=== PATIENT | male | born 1965 | race Caucasian/White ===

== ENCOUNTER → 2017-08-03 18:53 | Emergency (ER) | payer OTHER ==
[2017-08-03 20:23] LABS: ALBUMIN 3.9 g/dL (3.4-5.0); ALKALINE PHOSPHATASE 70 U/L (46-116); ALT (SGPT) 27 U/L (10-68); BILIRUBIN - TOTAL 1.02 mg/dL (0.2-1.3); CALC OSMOLALITY 278 mosm/kg (275-300); CARBON DIOXIDE 24.2 mmol/L (21.0-32.0); CHLORIDE - SERUM 101 mmol/L (98-107); CREATININE - SERUM 1.1 mg/dL (0.6-1.3); GLUCOSE 128 mg/dL (74-106); POTASSIUM - SERUM 4.2 mmol/L (3.5-5.1); PROTEIN - SERUM 7.5 g/dL (6.4-8.2); SODIUM 137 mmol/L (136-145); UREA NITROGEN 22 mg/dL (7-18); eGFR NON AFRICAN AMERICAN 75 mL/min (90-120)
== END | disposition home or self-care (01) ==
LOC: D.ER 18:53
PROVIDERS: Nurse Practitioner Family
DX: R11.10 Vomiting, unspecified (principal)

== ENCOUNTER → 2018-01-23 07:17 | Outpatient (CLI) | payer OTHER | END | disposition home or self-care (01) | LOC: D.MRI 07:17 | DX: G89.29 Other chronic pain (principal) ==

== ENCOUNTER 2020-03-30 11:09 | Day surgery (SDC) | payer BC ==
[2020-03-28 09:49] LABS: HEMATOCRIT 43.6 % (42.0-54.0); HEMOGLOBIN 14.8 g/dL (13.5-17.5); MCH 32.2 pg (26.0-34.0); MCHC 33.9 g/dL (31.0-37.0); MEAN PLATELET VOLUME 8.6 fL (7.4-10.4); RBC 4.59 10x6/uL (4.20-6.10); RDW 13.5 % (11.5-14.5); WBC 4.2 10x3/uL (4.8-10.8)
[~2020-03-30] VITALS: Ht 177.8 cm; Wt 80.6 kg
[2020-03-30] VITALS (25 sets, daily range): BP systolic 93–120; BP diastolic 49–81; Ht 177.8 cm; Wt 80.6 kg
--- NOTE | ~2020-03-30 | OP ---
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 POSTOPERATIVE DIAGNOSES: Disc herniation, osteophyte formation at C6-C7 and C7-T1 with bilateral C7 and C8 radiculopathy. PROCEDURE: Anterior cervical discectomy with placement of artificial Mobi-C disc at C6-C7 and C7-T1. SURGEON: Norma Arevalo MD CASHIER SELF SERVICE GASOLINE: Abe Olguin. DESCRIPTION AND TECHNIQUE: After induction of general endotracheal anesthesia, the patient was positioned supine on the operating room table with the cervical spine on the neutral position. Fluoroscopic x-ray and [place] dissector localized the C6-C7 interspace. The skin was infiltrated with 1:100,000 epinephrine and 1% lidocaine. A transverse skin incision was carried out from the midline to the sternocleidomastoid muscle. I divided the platysma. Using blunt and sharp dissection with Metzenbaum scissors, I proceeded in an avascular plane medial to the carotid sheath. The C6-C7 and C7-T1 interspaces were identified with fluoroscopic x-ray and a spinal needle. The longus colli muscles were elevated from bodies of C6, C7 and T1. [place] distracting pins were placed in the bodies of C6, C7 and T1. The annulus was incised at each level with a #11 blade. The cartilaginous endplates and disc material were removed from the C6-7 and C7-T1 interspaces. Posteriorly, osteophytes drilled away with a Midas-Luther drill. The posterior longitudinal ligament was removed at each level with a 2 mm Cloward rongeurs. Following this, an appropriate size artificial cervical disc Mobi-C from Ignacio was placed in the C6-C7 and C7-T1 interspaces under fluoroscopic control. Good position of hardware was confirmed with fluoroscopic x-ray. Meticulous hemostasis was maintained throughout the wound. The wound was irrigated with copious amounts of Ancef irrigant solution. The platysma and subdermal layer closed with interrupted 4-0 Vicryl suture. The skin was reapproximated with Steri-Strips and benzoin. A sterile dressing was applied to the wound. The patient was awakened in good condition and taken to recovery. During the entirety of the procedure, Abe Olguin, household assistant assisted with retraction and hemostasis and the mechanical components of the procedure including artificial cervical disc. TRANSINT:[id number] Voice Confirmation ID: [id number] DOCUMENT ID: [id number] NORMA AREVALO MD CC: [id number] DICTATION DATE: 04/03/20741 PLUGGER WORKER: 04/03/20 1519 [facility] 03/31/20 [place] [id number]
[~2020-03-30 11:09] MED LIST: HYDROCODON-ACE1 EA10 PO; KLONOPIN0.5 MG PO; LISINOPRIL10 MG PO; MOBIC7.5 MG PO; ZANAFLEX4 MG PO
--- NOTE | 2020-03-30 15:21 | NUR ---
THIS PATIENT HAS NOT ARRIVED ON THE UNIT. THE NURSE REPORTS HE IS STILL IN THE OR. CM REQUEST THAT ADMISSION ORDER BE ENTERED WHEN SHE SPEAKS WITH THE DR SILVERIO. HIS BED HAS BEEN TAKEN TO THE OR FOR PLANNED ADMIT TO [facility] 7.
--- NOTE | 2020-03-30 17:54 | NUR ---
PT ARRIVED TO ROOM WITH RECOVERY ROOM STAFF 1613 AND REPORT RECIEVED APPROX 1630, PT ALERT AND ORIENTED ON ROOM AIR DENIES ALL NEEDS, AT BEDSIDE AND UPDATED, VSS, INCISION SITE CDI TO R NECK, SHELL DRAINING YELLOW URINE, CALL LIGHT WITHIN REACH 1730 ICE CHIPS TOLERATED WELL, PT AND DENY NEEDS AND QUESTIONS 1745 MORPHINE GIVEN FOR INCISIONAL PAIN
--- NOTE | 2020-03-30 19:35 | NUR ---
PT A/OX4, LUNGS CLEAR, VOICES NEEDS, INCISION TO RIGHT NECK WITH DERMABOND ASSISTANT [employer] PUBLIC DEFENDER, LEFT PIV INTACT WITH D51/2NS @ 50 CC/HR, SHELL PATENT TO BSD, PT REQUESTS SOMETHING TO EAT, GIVEN TURKEY SANDWICH, WILL CONT TO MONITOR
--- NOTE | 2020-03-30 21:00 | NUR ---
SPOUSE PRESENT IN ROOM, PT REMAINS AWAKE, NO DISTRESS NOTED
[2020-03-31] VITALS: BP 101/66
--- NOTE | 2020-03-31 00:58 | NUR ---
PT SITTING UP ON SIDE OF BED, STATES HE JUST NEEDED TO SIT UP FOR A FEW MINUTES THAT HE WAS TIRED OF LAYING IN BED, VITALS STABLE
[2020-03-31 02:08] VITALS: BP 93/67
[2020-03-31 03:00] VITALS: BP 99/62
[2020-03-31 04:00] VITALS: BP 99/67
[2020-03-31 07:00] VITALS: BP 110/71
--- NOTE | 2020-03-31 07:00 | NUR ---
BEDSIDE REPORT RECEIVED. SHIFT ASSESSMENT COMPLETED PER FLOWSHEET, SEE FLOWSHEET FOR INFORMATION. SHELL TAKEN OUT, PT IMMEDIATELY VOIDED VERY SMALL AMOUNT. INFORMED PT WE NEED AT LEAST 200ML OF URINE BEFORE HE CAN GO HOME. PT VERBALIZED UNDERSTANDING. AT BEDSIDE, NEW ORDER RECEIVED. VSS. WILL CONT TO MONITOR.
[2020-03-31] MEDS ORDERED: MEDROL DOSE PACK4 MG PO (07:43)
[2020-03-31] MEDS ORDERED: HYDROCODON-ACE1 EA10 PO (07:43)
[2020-03-31 08:00] VITALS: BP 118/79
--- NOTE | 2020-03-31 09:15 | NUR ---
PT DISCHARGED TO PERSONAL VEHICLE VIA WHEELCHAIR. MARYSE LEWIS TOOK PT DOWN TO ER ENTRANCE. NO ACUTE NEEDS OR DISTRESS NOTED AT THIS TIME. IV REMOVED, PT DENIES ANY PAIN OR DISCOMFORT.
== END 2020-03-31 09:30 | disposition home or self-care (01) ==
LOC: D.OPS 11:09 → D.CVICU 13:00 → D.OPS 03-31 09:30
PROVIDERS: Anesthesiology; ATTEND Neurological Surgery
DX: M50.123 Cervical disc disorder at C6-C7 level with radiculopathy (principal); I10 Essential (primary) hypertension; G95.9 Disease of spinal cord, unspecified